=== PATIENT | male | born 1990 | race Caucasian/White ===

== ENCOUNTER 2019-12-12 07:30 | Outpatient (RCR) | payer OTHER, SELFPAY ==
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
== END 2019-12-15 08:17 ==
LOC: OT 07:30
PROVIDERS: PCP Student in an Organized Health Care Education/Training Program; Referring Provider Student in an Organized Health Care Education/Training Program; Visit Provider Student in an Organized Health Care Education/Training Program
DX: S52.092A Other fracture of upper end of left ulna, initial encounter for closed fracture (principal)
CPT/HCPCS: 97110; 97112; 97140; 97165; 97530

== ENCOUNTER 2022-04-11 16:30 | Emergency (ER) | payer OTHER, BC, SELFPAY ==
[2022-04-11] VITALS (9 sets, daily range): BP systolic 137–168; BP diastolic 67–95; PULSE 91–113; RESP 15–24; TEMP 37.1; O2SAT 94–99; BMI 34.5
--- NOTE | 2022-04-11 17:10 | DI.RAD.S_ITS ---
PROCEDURE: XR CHEST 1V INDICATIONS: chest pain TECHNIQUE: One view of the chest was acquired. COMPARISON: None. FINDINGS: Surgical changes and devices: None. Lungs and pleura: Lungs are clear. No pleural effusions or pneumothorax. Mediastinum: Mediastinal contours appear normal. Heart size is normal. Bones and chest wall: No suspicious bony lesions. Overlying soft tissues appear unremarkable. IMPRESSION: No acute cardiopulmonary pathology. Dictated by: Silvio Medellin M.D. on 04/11/2022 at 17:57 Approved by: Silvio Medellin M.D. on 04/11/2022 at 17:58
[2022-04-11 17:19] LABS: Add Manual Diff / Slide Review NO; Basophils Absolute Auto 100 /uL (0-100); Basophils Percent Auto 0.7 % (0-2); Eosinophils Absolute Auto 0 /uL (0-450); Eosinophils Percent Auto 0.4 % (2-4); Hematocrit 43.1 % (41-53); Lymphocytes Absolute Auto 1400 /uL (1100-4500); Lymphocytes Percent Auto 15.2 % (25-40); Mean Corpuscular Hemoglobin 29.2 PG (26-34); Mean Corpuscular Volume 83.7 fL (80-100); Monocytes Absolute Auto 500 /uL (0-900); Monocytes Percent Auto 5.4 % (3-14); Neutrophils Absolute Auto 7100 /uL (1500-7000); Neutrophils Percent Auto 78.3 % (50-75); Platelet Count 218 X10^3/uL (150-400); Red Blood Cell Count 5.15 X10^6/uL (4.5-5.9); Red Cell Distribution Width 12.9 % (11.6-14.8)
[2022-04-11 17:22] LABS: INR 1.1 (0.9-1.3)
[2022-04-11 17:24] LABS: PTT Partial Thromboplastin Tim 28 SECONDS (26-36)
[2022-04-11 17:25] LABS: D Dimer < 215 ng/ml (<500)
[2022-04-11 17:26] LABS: Alanine Aminotransferase 43 IU/L (<50); Albumin Globulin Ratio 1.5 (1.0-2.8); Alkaline Phosphatase 58 U/L (38-126); Aspartate Aminotransferase 28 IU/L (17-59); BUN Creatinine Ratio 21.5 (6-22); Bilirubin Total 0.6 mg/dL (0.2-1.3); Blood Urea Nitrogen 17 mg/dL (9-20); Carbon Dioxide 21 mmol/L (22-32); Chloride 102 mmol/L (98-107); Creatine Kinase 131 U/L (55-170); Estimated Glomerular Filt Rate > 60 mL/min (>60); Globulin 3.3 g/dL (1.7-4.1); Glucose 120 mg/dL (70-100); HEMOLYSIS 22 (0-50); Lipase 168 U/L (23-300); Magnesium 1.8 mg/dL (1.6-2.3); Potassium 3.7 mmol/L (3.4-5.1); Sodium 137 mmol/L (137-145); Total Protein 8.3 g/dL (6.3-8.2)
[2022-04-11 17:38] LABS: NT-proBNP (BNP-Adult 18+) < 11 pg/mL (<125); Troponin I < 0.012 ng/mL (0.01-0.034)
[2022-04-11 17:41] LABS: CKMB % Relative Index 0.6 % (1.5-5.0); Creatine Kinase MB 0.77 ng/mL (<2.37)
--- NOTE | 2022-04-11 17:51 | ED_ITS ---
HPI - Anxiety General Chief Complaint: Anxiety Stated Complaint: Poss anxiety attack, Chest pain, Blurred vision Time Seen by Provider: 04/11/22 17:49 History of Present Illness HPI narrative: 32-year-old male nonsmoker nondrinker with history of hypertension presents for evaluation anxiety and tachycardia for about the past week. He states that he has a tendency to be a bit anxious and feels that way this week. Denies any medication or dietary change. He states he is had no recent travel, history of blood clot or cardiac issues. He does not know what his normal heart rate is b ut states this is definitely higher than normal. On occasion he has had some lightheadedness and blurred vision but not currently. Denies any chest pain or shortness of breath. He has had no vomiting or diarrhea. Related Data Previous Rx's Medication Instructions Recorded lisinopril 20 1 tab PO DAILY #90 tabs 01/30/22 mg-hydrochlorothiazide 12.5 mg tablet fluoxetine 10 mg capsule 10 mg PO DAILY #30 caps 03/18/22 Allergies Allergy/AdvReac Type Severity Reaction Status Date / Time No Known Drug Allergies Allergy Unverified 01/30/22 09:10 Review of Systems Review of Systems Narrative: GENERAL: See HPI HEENT: Denies sinus pain, ear pain, sore throat, difficulty swallowing, dizziness. RESPIRATORY: Denies dyspnea, cough, wheezing, hemoptysis, sputum. CARDIOVASCULAR: See HPI GASTROINTESTINAL: Denies nausea, vomiting, abdominal pain, diarrhea, constipation, melena. : Denies dysuria, frequency, incontinence, hematuria, urinary retention. MUSCULOSKELETAL: denies weakness, joint pain, or bony pain SKIN: Denies rash, skin lesions, or other NEUROLOGIC: Denies weakness, headache, numbness, change in speech, confusion, seizures, incoordination. PSYCHIATRIC: No concerning psychosocial issues. 12 point review of systems is negative except for those stated above Patient History Medical History Achilles tendinitis Ankle pain (~2009) Anxiety (~2017) Hypertension (~2020) Surgical History Anesthesia History of ankle surgery (~2017) Family History Father Prostate cancer Diabetes mellitus Mother Mental health problem Grandmother Diabetes mellitus Exam Narrative Exam Narrative: GENERAL: [32] year old patient appears stated age. Well-developed patient, in mild distress. HEAD: Atraumatic. Normocephalic. EYES: Pupils equal round and reactive. Extraocular motions intact. No scleral icterus. No injection or drainage. ENT: Nose without bleeding, purulent drainage. Throat without erythema, tonsillar hypertrophy or exudate. Airway patent. NECK: Trachea midline. Non tender CARDIOVASCULAR: Tachycardic irregular rhythm without murmurs, gallops, or rubs. RESPIRATORY: Clear to auscultation. Breath sounds equal bilaterally. No wheezes, rales, or rhonchi. GASTROINTESTINAL: Abdomen soft, non-tender, nondistended. EXTREMITIES: No edema or joint tenderness. BACK: Nontender without deformity or crepitance. No flank tenderness. NEURO: AOx3. SKIN: No rash or erythema of visible areas Initial Vital Signs Initial Vital Signs: Vital Signs Temperature 98.7 F 04/11/22 17:08 Pulse Rate 106 H 04/11/22 17:08 Respiratory Rate 18 04/11/22 17:08 Blood Pressure 168/95 H 04/11/22 17:08 Pulse Oximetry 99 04/11/22 17:08 Oxygen Delivery Method 04/11/22 17:08 Course Orders Ordered: ED Orders 04/11/22 18:02 TSH w/ Reflex to FT4 Stat Discontinued Medications Sodium Chloride (Normal Saline 0.9%) 1,000 mls @ 1,000 mls/hr IV BOLUS ONE Stop: 04/11/22 19:02 Last Infusion: 04/11/22 19:48 Dose: 0 mls/hr Documented By: JOSE DAVID Admin: 04/11/22 18:41 Dose: 1,000 mls/hr Documented By: EMANUEL Vital Signs Vital signs: Vital Signs - 8 hr 04/11/22 19:00 04/11/22 19:11 04/11/22 19:11 Pulse Rate 97 H 110 H Respiratory Rate 16 17 Blood Pressure 144/67 H Pulse Oximetry 94 97 Oxygen Delivery Method Room Air 04/11/22 19:30 04/11/22 20:51 Pulse Rate 91 H 100 H Respiratory Rate 17 18 Blood Pressure 137/68 Pulse Oximetry 96 99 Oxygen Delivery Method MDM - Anxiety Lab Data Result diagrams: 04/11/22 17:04 04/11/22 17:04 Labs: Lab Results 04/11/22 04/11/22 04/11/22 Range/Units 17:04 17:04 17:04 WBC 9.0 (4.5-11.0) X10^3/uL RBC 5.15 (4.5-5.9) X10^6/uL Hgb 15.0 (13.5-17.5) g/dL Hct 43.1 (41-53) % MCV 83.7 (80-100) fL MCH 29.2 (26-34) PG MCHC 35.0 (30-36) % RDW 12.9 (11.6-14.8) % Plt Count 218 (150-400) X10^3/uL Neut % (Auto) 78.3 H (50-75) % Lymph % (Auto) 15.2 L (25-40) % [place] % (Auto) 5.4 (3-14) % Eos % (Auto) 0.4 L (2-4) % Baso % (Auto) 0.7 (0-2) % Neut # (Auto) 7100 H (4128-5540) /uL Lymph # (Auto) 1400 (1406-2206) /uL [place] # (Auto) 500 (0-900) /uL Eos # (Auto) 0 (0-450) /uL Baso # (Auto) 100 (0-100) /uL PT 13.0 H (10.1-12.7) SECONDS INR 1.1 (0.9-1.3) APTT 28 (26-36) SECONDS D-Dimer < 215 (<500) ng/ml Sodium 137 (137-145) mmol/L Potassium 3.7 (3.4-5.1) mmol/L Chloride 102 (98-107) mmol/L Carbon Dioxide 21 L (22-32) mmol/L BUN 17 (9-20) mg/dL Creatinine 0.79 (0.66-1.25) mg/dL Estimated GFR > 60 (>60) mL/min BUN/Creatinine Ratio 21.5 (6-22) Glucose 120 H (70-100) mg/dL Calcium 10.0 (8.4-10.2) mg/dL Magnesium 1.8 (1.6-2.3) mg/dL Total Bilirubin 0.6 (0.2-1.3) mg/dL AST 28 (17-59) IU/L ALT 43 (<50) IU/L Alkaline Phosphatase 58 (38-126) U/L Total Creatine Kinase 131 (55-170) U/L CK-MB (CK-2) 0.77 (<2.37) ng/mL CK-MB (CK-2) Rel Index 0.6 L (1.5-5.0) % Troponin I < 0.012 (0.01-0.034) ng/mL NT-Pro-B Natriuret Pep < 11 (<125) pg/mL Total Protein 8.3 H (6.3-8.2) g/dL Albumin 5.0 (3.5-5.0) g/dL Globulin 3.3 (1.7-4.1) g/dL Albumin/Globulin Ratio 1.5 (1.0-2.8) Lipase 168 (23-300) U/L TSH (0.47-4.68) uIU/mL 04/11/22 Range/Units 18:02 WBC (4.5-11.0) X10^3/uL RBC (4.5-5.9) X10^6/uL Hgb (13.5-17.5) g/dL Hct (41-53) % MCV (80-100) fL MCH (26-34) PG MCHC (30-36) % RDW (11.6-14.8) % Plt Count (150-400) X10^3/uL Neut % (Auto) (50-75) % Lymph % (Auto) (25-40) % [place] % (Auto) (3-14) % Eos % (Auto) (2-4) % Baso % (Auto) (0-2) % Neut # (Auto) (4793-4331) /uL Lymph # (Auto) (8473-1887) /uL [place] # (Auto) (0-900) /uL Eos # (Auto) (0-450) /uL Baso # (Auto) (0-100) /uL PT (10.1-12.7) SECONDS INR (0.9-1.3) APTT (26-36) SECONDS D-Dimer (<500) ng/ml Sodium (137-145) mmol/L Potassium (3.4-5.1) mmol/L Chloride (98-107) mmol/L Carbon Dioxide (22-32) mmol/L BUN (9-20) mg/dL Creatinine (0.66-1.25) mg/dL Estimated GFR (>60) mL/min BUN/Creatinine Ratio (6-22) Glucose (70-100) mg/dL Calcium (8.4-10.2) mg/dL Magnesium (1.6-2.3) mg/dL Total Bilirubin (0.2-1.3) mg/dL AST (17-59) IU/L ALT (<50) IU/L Alkaline Phosphatase (38-126) U/L Total Creatine Kinase (55-170) U/L CK-MB (CK-2) (<2.37) ng/mL CK-MB (CK-2) Rel Index (1.5-5.0) % Troponin I (0.01-0.034) ng/mL NT-Pro-B Natriuret Pep (<125) pg/mL Total Protein (6.3-8.2) g/dL Albumin (3.5-5.0) g/dL Globulin (1.7-4.1) g/dL Albumin/Globulin Ratio (1.0-2.8) Lipase (23-300) U/L TSH 1.35 (0.47-4.68) uIU/mL Imaging Data Chest x-ray: Radiologist's Impression: [address] [address] XRay Report Signed Patient: Timur Rodriguez MR#: [id number] : 1990 Acct:[id number] Age/Sex: 32 / M Date of Service: 04/11/22 Loc: ED Accession Number: [id number] ?? Procedure: XR chest 1V Ordering Provider: Saloni Maxwell D.O. PROCEDURE:? XR CHEST 1V ? INDICATIONS:? chest pain ? TECHNIQUE:? One view of the chest was acquired.? ? COMPARISON:? None. ? FINDINGS:? ? Surgical changes and devices:? None.? ? Lungs and pleura:? Lungs are clear.? No pleural effusions or pneumothorax.? ? Mediastinum:? Mediastinal contours appear normal.? Heart size is normal.? ? Bones and chest wall:? No suspicious bony lesions.? Overlying soft tissues appear unremarkable.? ? IMPRESSION:? No acute cardiopulmonary pathology. ? ? Dictated by: Silvio Medellin M.D. on 04/11/2022 at 17:57 ? ? Approved by: Silvio Medellin M.D. on 04/11/2022 at 17:58 ? ECG Data Interpretation: [1656] EKG is sinus tachycardia with rate [102 ] and free of any signs of ischemia or ectopy. No ST segmental elevation or depression. No T wave inversions Discharge Plan Departure Patient Disposition: Home Clinical Impression: Tachycardia, Heart palpitations Instructions: DI for Tachycardia Activity Restrictions/Additional Instructions: *You have been diagnosed with [tachycardia, palpitations. As we discussed your history and physical exam are very reassuring as are labs, EKG and imaging. I am glad that you feel better after the fluids and our discussion. There is no indication of heart attack, blood clot, underlying infection or other significant diagnosis that would require specific or immediate intervention] *What to do: *Please continue to take your regular medications as directed. *Please follow up with your primary care provider in 2-3 days, call for an kelton ointment. Let them know you were seen in the Emergency Department and that we ask that you be seen in follow up. We will electronically transmit a record of today's note if your PCP is in our system *Return to Emergency Department if you should have any new, worsening or concerning symptoms, such as [fever greater than 101 F, shaking chills, worsening pain, persistent vomiting or other bothersome symptoms] Prescriptions: No Action fluoxetine 10 mg capsule 10 mg PO DAILY Qty: 30 2RF lisinopril-hydrochlorothiazide 20-12.5 mg tablet 1 tab PO DAILY Qty: 90 3RF Referrals: Jonathan Verde DO [Primary Care Provider] - Visit Report Forms: Patient Portal/API ED Sign-out Cosign ED Attending Cosjose eliasature Attestation: I was immediately available in the department for consultation. This documentation has been reviewed and I agree with assessment and plan. Supervised by Rodolfo Velarde DO
[2022-04-11] MEDS: SODIUM CHLORIDE 0.9% 1,000 ML 1000 ML IV (18:41)
[2022-04-11 19:12] LABS: TSH w/ Reflex to FT4 1.35 uIU/mL (0.47-4.68)
== END 2022-04-11 20:54 | disposition home or self-care (01) ==
PROVIDERS: Emergency Medicine; Emergency Provider Emergency Medicine; PCP Family Medicine
DX: R00.0 Tachycardia, unspecified (principal); R00.2 Palpitations
CPT/HCPCS: 36415; 71045; 80053; 82550; 82553; 83690; 83735; 83880; 84443; 84484; 85025; 85379; 85610; 85730; 93005; 99284